=== PATIENT | female | born 1995 | race Two or more races ===

== ENCOUNTER 2025-02-06 20:50 | Emergency (ER) | payer BC, OTHER, SELFPAY ==
[~2025-02-06] VITALS: Ht 165.1 cm; Wt 97.7 kg
[2025-02-06] MEDS ORDERED: IBUP-1456 PO (21:13)
--- NOTE | 2025-02-06 21:13 | ED.PDOC ---
Musculoskeletal HPI Comments 29-year-old female presents to ER with complaints of right ankle pain x2 hours. Patient reports that she has felt sudden onset of pain/swelling/bruising to right ankle and right foot 2 hours prior to arrival to ER s/p tripping and falling down two steps and rolling her right ankle inwards. Patient states that she did feel a cracking sensation to right ankle at onset of symptoms. She rates her current pain an 8/10 to right ankle and right foot and reports that she did take ibuprofen for her pain with slight relief. States she has not been able to bear weight on right leg due to right ankle and right foot pain and repots numbness/tingling to right foot. Patient denies any other reported injuries and endorses no further symptoms/complaints Chief Complaint: Lower Extremity Time Seen by MD: 20:56 Primary Care Provider: Reviewed Notes: Nurses Notes, Medications, Allergies Allergies: Coded Allergies: NO KNOWN ALLERGIES (Unverified , 02/28/15) Home Meds Active Scripts Ibuprofen (Ibuprofen) 800 Mg Tab, 1 TAB PO TID PRN, #30 TAB 0 Refills Prov:MIGUEL ANGEL HERNANDEZ 02/06/25 Information Source: Patient Mode of Arrival: Wheelchair Past Medical History PAST MEDICAL HISTORY: Denies Surgical History: Denies all surgeries Family History Family History: Unknown Social History Smoker: Non-Smoker Alcohol: Denies ETOH Use Drugs: Denies Drug Use Lives In: Home Constitutional: denies: chills, diaphoresis, fatigue, fever, malaise, sweats, weakness, others EENTM: denies: blurred vision, double vision, ear bleeding, ear discharge, ear drainage, ear pain, ear ringing, eye pain, eye redness, hearing loss, mouth pain, mouth swelling, nasal discharge, nose bleeding, nose congestion, nose pain, photophobia, tearing, throat pain, throat swelling, voice changes, others Respiratory: denies: cough, hemoptysis, orthopnea, SOB at rest, shortness of breath, SOB with excertion, stridor, wheezing, others Cardiovascular: denies: chest pain, dizzy spells, diaphoresis, Dyspnea on exertion, edema, irregular heart beat, left arm pain, lightheadedness, palpitations, PND, syncope, others Gastrointestinal: denies: abdomen distended, abdominal pain, blood streaked bowels, constipated, diarrhea, dysphagia, difficulty swallowing, hematemesis, melena, nausea, poor appetite, poor fluid intake, rectal bleeding, rectal pain, vomiting, others Genitourinary: denies: abnormal vagina bleeding, burning, dyspareunia, dysuria, flank pain, frequency, hematuria, incontinence, pain, , vagina discharge, urgency, others Neurological: denies: dizziness, fainting, headache, left sided numbness, left sided weakness, numbness, paresthesia, pre-existing deficit, right sided numbness, right sided weakness, seizure, speech problems, tingling, tremors, weakness, others Musculoskeletal: reports: others (As stated in HPI) Integumetry: reports: others (As stated in HPI) Allergic/Immunocompromised: denies: Difficulty Healing, Frequent Infections, Hives, Itching, others Hematologic/Lymphatic: denies: anemia, blood clots, easy bleeding, easy bruising, swollen glands, others Endocrine: denies: excessive hunger, excessive sweating, excessive thirst, excessive urination, flushing, intolerance to cold, intolerance to heat, unexplained weight gain, unexplained weight loss, others Psychiatric: denies: anxiety, bipolar disorder, depression, hopeless, panic disorder, schizophrenia, sleepless, suicidal, others Physical Exam General Appearance: No Apparent Distress, Obese HEENT: PERRL/EOMI Neck: Full Range of Motion, Non-Tender, Normal Respiratory: Chest Non-Tender, Lungs Clear, No Accessory Muscle Use, No Respiratory Distress, Normal Breath Sounds Cardiovascular: No Murmur, No Gallop, Regular Rate/Rhythm Breast Exam: Deferred Gastrointestinal: NOT DONE Genitalia: Deferred Pelvic: Deferred Rectal: Deferred Extremities: No calf tenderness, Normal capillary refill Musculoskeletal : Extremity Location: Ankle (TTP/moderate swelling/minimal ecchymosis noted to right lateral malleolus and right 5th metatarsal. No further skin changes noted. Pulses intact. Patient unable to bear weight on right leg due to pain localized to right lateral malleolus and right 5th metatarsal) Neurologic: Alert, No Motor Deficits, Normal Affect, Normal Mood, No Sensory Deficits Cerebellar Function: Normal Reflexes: Normal Skin: Dry, Warm Peripheral Pulses: 2+ femoral (R), 2+ femoral (L), 2+ dorsalis pedis (R), 2+ dorsalis pedis (L), 2+ Radial (R), 2+ Radial (L), 2+ Brachial (R), 2+ Brachial ( L) Lymphatic: No Adenopathy Was a procedure done? Was a procedure done?: No Sedation Sedation?: No Differential Diagnosis EXT Differential Diagnosis: Dislocation, Laceration, Neurovascular injury X-Ray, Labs, Meds, VS Vital Signs Date Time Temp Pulse Resp B/P (MAP) Pulse Ox O2 Delivery O2 Flow Rate FiO2 02/06/25 21:24 99.0 87 18 127/83 (98) 95 99.0 02/06/25 20:52 99.3 113 20 157/83 99 99.3 PATIENT: MONICA WHALEN ACCT: [id number] UNIT: [id number] : 1995 LOC: ER ROOM / BED: / AGE / SEX: 29 / F ADM STATUS: REG ER SERVICE 02 ORDERING PHYSICIAN: MIGUEL ANGEL HERNANDEZ PROCEDURE(s): RFOOT - R FOOT 3 VIEW XRAY REASON: right foot pain ORDER NUMBER(s): [id number], ACCESSION NUMBER(s): [id number] CLINICAL INDICATION: right foot pain TECHNIQUE: XYXY R FOOT 3 VIEW XRAY Comparison: None FINDINGS/IMPRESSION: : Minimally displaced transverse fracture of the base of the 5th metatarsal. Alignment is anatomic. ATED BY: JOSEPH HANDY MD DICTATED DATE/TIME: 02/06/252156 SIGNED BY: JOSEPH HANDY MD SIGNED DATE/TIME: 02/06/252156 CC: PATIENT: MONICA WHALEN ACCT: [id number] UNIT: [id number] : 1995 LOC: ER ROOM / BED: / AGE / SEX: 29 / F ADM STATUS: REG ER SERVICE 02 ORDERING PHYSICIAN: MIGUEL ANGEL HERNANDEZ PROCEDURE(s): RANKL - R ANKLE 3 VIEW REASON: right ankle pain ORDER NUMBER(s): [id number], ACCESSION NUMBER(s): [id number] CLINICAL INDICATION: right ankle pain TECHNIQUE: 3 radiographic views of the right ankle were obtained. Comparison: None FINDINGS/IMPRESSION: There is acute mildly displaced fracture of the lateral malleolus with associated moderate soft tissue edema. No dislocation. Acute mildly displaced fracture of the 5th metatarsal base with associated soft tissue edema. ATED BY: GABRIELA HERNANDEZ DO DICTATED DATE/TIME: 02/06/252149 SIGNED BY: GABRIELA HERNANDEZ DO SIGNED DATE/TIME: 02/06/252149 CC: WAIVER SIGNED RIGHT FOOT X-RAY REVIEWED RIGHT ANKLE X-RAY REVIEWED RIGHT POSTERIOR SHORT-LEG SPLINT APPLIED CRUTCHES ORDERED, PATIENT EDUCATED ON PROPER USE. WAS ADVISED ON NON-WEIGHT BEARING RIGHT LEG ADVISED ON ELEVATION AND ALTERNATE ICE ON/OFF NEEDED FOR PAIN/SWELLING PATIENT NEUROVASCULARLY INTACT AND REPORTED IMPROVEMENT IN SYMPTOMS PRIOR TO DISCHARGE ADVISED TO FOLLOW UP WITH PCP AND ORTHOPEDICS/BUFFING WHEEL FORMER MACHINE IN 1-2 DAYS PATIENT VERBALIZED UNDERSTANDING AND AGREEABLE WITH CURRENT PLAN OF CARE ADVISED TO RETURN TO ER IMMEDIATELY IF SYMPTOMS WORSEN Images Reviewed?: Images reviewed and evaluated by me Time of 1ST Reevaluation: 21:11 Reevaluation 1ST: N/A Patient Education/Counseling: Diagnosis, Treatment, Prognosis, Need For Follow Up Family Education/Counseling: No Family Present Departure 1 Departure Time of Disposition: 22:00 Impression: Primary Impression: Ankle fracture, right Qualified Codes: S82.891A - Other fracture of right lower leg, initial encounter for closed fracture Additional Impression: Fracture of metatarsal of right foot, closed Qualified Codes: S92.354A - Nondisplaced fracture of fifth metatarsal bone, right foot, initial encounter for closed fracture Disposition: 01 HOME / SELF CARE / HOMELESS Condition: Stable e-Prescriptions Ibuprofen (Ibuprofen) 800 Mg Tab 1 TAB PO TID PRN, #30 TAB 0 Refills Prov: MIGUEL ANGEL HERNANDEZ 02/06/25 Discharged With: Friend Critical Care Note Critical Care Time?: No Stability Stability form required: No Heart Score Heart Score: Heart Score Response (Comments) Value History N/A 0 EKG N/A 0 Age N/A 0 Risk Factors N/A 0 Troponin N/A 0 Total 0 MIGUEL ANGEL HERNANDEZ Feb 06, 2025 21:13
[2025-02-06 21:24] VITALS: BP 127/83; PULSE 87; RESP 18; TEMP 99; O2SAT 95
--- NOTE | 2025-02-06 21:52 | DVH ---
CLINICAL INDICATION: right ankle pain TECHNIQUE: 3 radiographic views of the right ankle were obtained. Comparison: None FINDINGS/IMPRESSION: There is acute mildly displaced fracture of the lateral malleolus with associated moderate soft tissue edema. No dislocation. Acute mildly displaced fracture of the 5th metatarsal base with associated soft tissue edema.
--- NOTE | 2025-02-06 22:00 | DVH ---
CLINICAL INDICATION: right foot pain TECHNIQUE: XYXY R FOOT 3 VIEW XRAY Comparison: None FINDINGS/IMPRESSION: : Minimally displaced transverse fracture of the base of the 5th metatarsal. Alignment is anatomic.
== END 2025-02-06 22:32 | disposition home or self-care (01) ==
LOC: ER 20:50
DX: S82.61XA Displaced fracture of lateral malleolus of right fibula, initial encounter for closed fracture (principal); S92.354A Nondisplaced fracture of fifth metatarsal bone, right foot, initial encounter for closed fracture; W10.9XXA Fall (on) (from) unspecified stairs and steps, initial encounter; Y93.89 Activity, other specified; Y92.89 Other specified places as the place of occurrence of the external cause; Y99.8 Other external cause status
CPT/HCPCS: 29515; 73610; 73630